=== PATIENT | male | born 1965 | race American Indian/Alaskan Native ===

== ENCOUNTER 2020-07-13 18:04 | Emergency (ER) | payer OTHER ==
--- NOTE | 2020-07-13 19:40 | Event Note ---
ED Screening Note Date of service: 07/13/20 Time: 19:38 ED Screening Note: 54-year-old male patient with history of chronic alcohol abuse presents emergency department with complaints of progressively worsening chronic cough, which occurred today, followed by syncopal episode during which he fell and hit his head. Patient mitts to drinking alcohol today. States he does not recall the events surrounding his syncope/head strike but his friend witnessed the event. He is not on antiepileptic medications. Tetanus is up-to-date. General: Awake, appropriately interactive, no acute distress. HEENT: Superficial abrasion noted to the back of the head. Neck: Supple. Full range of motion intact. Cardiovascular: Normal peripheral perfusion. Pulmonary: No respiratory distress. Patient is speaking normally without use of accessory muscles. Skin: No apparent rashes or lesions. Neurological: No facial asymmetry. Speech is clear. Follows commands. Patient is alert and oriented. Musculoskeletal: Moves all four extremities spontaneously with normal range of motion. Psych: Cooperative. Appropriate mood and affect. I have greeted and performed a focused rapid initial assessment of this patient. A comprehensive ED assessment and evaluation of the patient, analysis of all test results, and completion of the medical decision-making process will be conducted by additional ED providers. This initial assessment/diagnostic orders/clinical plan/treatment(s) is/are subject to change based on patients health status, clinical progression and re-assessment. Further treatment and workup at subsequent clinical provider's discretion. Patient/guardian urged not to elope from the ED as their condition may be serious if not clinically assessed and managed.
--- NOTE | 2020-07-13 20:14 | XRay Report ---
CHEST 2 VIEWS INDICATION / CLINICAL INFORMATION: syncope. COMPARISON: None available. FINDINGS: SUPPORT DEVICES: None. HEART / MEDIASTINUM: No significant abnormality. LUNGS / PLEURA: No significant pulmonary or pleural abnormality. No pneumothorax. ADDITIONAL FINDINGS: No significant additional findings. IMPRESSION: 1. No acute findings. Signer Name: Dwight Holguin MD Signed: 07/13/2020 8:09 PM Workstation Name: [id number]
[2020-07-13 20:15] LABS: Basophils # (Auto) 0.1 K/mm3 (0.0-0.1); Basophils % (Auto) 0.8 % (0.0-1.8); Eosinophils # (Auto) 0.1 K/mm3 (0.0-0.4); Eosinophils % (Auto) 1.6 % (0.0-4.3); Hematocrit 44.2 % (35.5-45.6); Hemoglobin 14.6 gm/dl (11.8-15.2); Lymphocytes # (Auto) 1.6 K/mm3 (1.2-5.4); Lymphocytes % (Auto) 25.3 % (13.4-35.0); Mean Corpuscular HGB Conc 33 % (32-34); Mean Corpuscular Volume 91 fl (84-94); Monocytes # (Auto) 0.6 K/mm3 (0.0-0.8); Monocytes % (Auto) 9.6 % (0.0-7.3); Platelet Count 201 K/mm3 (140-440); Red Blood Count 4.86 M/mm3 (3.65-5.03); Red Cell Distribution Width 14.5 % (13.2-15.2)
[2020-07-13 20:38] LABS: Alanine Aminotransferase 19 units/L (7-56); Albumin 4.1 g/dL (3.9-5); BUN/Creatinine Ratio 17; Blood Urea Nitrogen 15 mg/dL (9-20); Calcium 9.2 mg/dL (8.4-10.2); Hemolysis Index 11
--- NOTE | 2020-07-13 21:03 | Cat Scan Report ---
Exam: CT cervical spine History: headstrike; ETOH; Technique: Contiguous thin cut axial images obtained through the cervical spine. Sagittal and montaño l reconstructions performed by the technologist. All CT scans at this location are performed using CT dose reduction for ALARA by means of automated exposure control. Findings: No priors. There is no evidence of fracture or traumatic subluxation. Vertebral bodies are normal in height and alignment. Intervertebral disc spaces: Minimal spondylotic changes at C4-C5, C5-C6 and C6-C7 disc levels; neurof oramina are normal; tiny air bubble on the left side along the superior endplate of C4; probably from the disc space No significant degenerative change seen in the uncinate or facet joints. No significant canal stenosi s or osseous foraminal narrowing. Surrounding soft tissues are grossly normal. Impression: No signs of acute bony trauma to the cervical spine. Signer Name: Kavin Wilcox MD Signed: 07/13/2020 8:59 PM Workstation Name: [id number]
--- NOTE | 2020-07-13 21:05 | Cat Scan Report ---
NONENHANCED CT SCAN OF THE HEAD: INDICATION / CLINICAL INFORMATION: 54 years Male; headstrike; ETOH. TECHNIQUE: Routine CT head without contrast. All CT scans at this location are performed using CT dos e reduction for ALARA by means of automated exposure control. COMPARISON: None. FINDINGS: BRAIN / INTRACRANIAL CONTENTS: No intracranial sequela from the trauma; no scalp hematoma; no air-flu id level in the visualized portions of the paranasal sinuses No acute hemorrhage, mass effect, midline shift, hydrocephalus, or acute, large territorial infarct. No chronic infarct or focal atrophy. Normal brain volume and ventricular/sulcal size for age. No sign ificant white matter abnormality. Cerebellar vermis and the mammillary bodies normal CRANIOCERVICAL JUNCTION: No significant abnormality. ORBITS: No significant abnormality of visualized orbits. SINUSES / MASTOIDS: No significant abnormality of the visualized paranasal sinuses or mastoid air cathy ls. ADDITIONAL FINDINGS: None. IMPRESSION: No intracranial sequela from the trauma No acute focal parenchymal lesion in the brain Signer Name: Kavin Wilcox MD Signed: 07/13/2020 9:01 PM Workstation Name: [id number]
[2020-07-14] MEDS ORDERED: SODIUM CHLORIDE 0.9% 1000 ML 1,000 ML IV ONE (01:33)
--- NOTE | 2020-07-14 01:41 | Emergency Department Report ---
HPI - General Chief Complaint: Seizure Time Seen by Provider: 07/14/20 01:14 - HPI HPI: Room 22 The patient is a 54-year-old male present with a chief complaint of coughing spells and syncope. The patient states over the past 3 months he has had 3 sepa rate episodes where he has spasmodic coughing which causes him to shake and then lose consciousness falling to the floor. Patient states most recent episode occurred today. The patient states 1 of these episodes was witnessed by a friend and states that he does not shake when on the floor. The patient states he begins to cough spasmodically and is aware of himself trembling before he loses consciousness. Patient states his cough has been nonproductive. Patient denies history of fever. Patient complains of soreness to the back of his head from a fall and neck pain. Patient states he has not sought medical attention for these episodes as his primary physician is only offering Zoom interviews. Patient gives his pain a score of 7/10 ED Past Medical Hx - Past Medical History Previous Medical History?: No - Surgical History Past Surgical History?: Yes Additional Surgical History: LT testicle at 12 year old. Lt eye - Family History Family history: no significant - Social History Smoking Status: Current Every Day Smoker (1/2 pack/day) Substance Use Type: None (Denies illicit drug use), Alcohol (Occasional) - Medications Home Medications: Home Medications Medication Instructions Recorded Confirmed Last Taken Type Benzonatate [Tessalon Perles] 100 mg PO Q8HR #60 capsule 07/14/20 Unknown Rx HYDROcodone/APAP 5-325 [Helm 1 - 2 each PO Q6HR PRN #10 tablet 07/14/20 Unknown Rx 5/325] Ibuprofen [Motrin 800 MG tab] 800 mg PO Q8HR PRN #20 tablet 07/14/20 Unknown Rx Prednisone [predniSONE 10 mg 10 mg PO .TAPER #1 tab.ds.pk 07/14/20 Unknown Rx (6-Day Pack, 21 Tabs)] ED Review of Systems ROS: Stated complaint: COUGHING/DIZZY/WEAKNESS Other details as noted in HPI Constitutional: denies: fever Eyes: denies: eye pain ENT: denies: throat pain Respiratory: cough Cardiovascular: denies: chest pain Endocrine: no symptoms reported Gastrointestinal: denies: abdominal pain Genitourinary: denies: dysuria Musculoskeletal: arthralgia Neurological: headache Physical Exam - Physical Exam Vital Signs: Vital Signs 07/13/20 19:40 Temperature 98.9 F Pulse Rate 70 Respiratory 16 Rate Blood Pressure 117/59 [Right] O2 Sat by Pulse 96 Oximetry Physical Exam: GENERAL: The patient is well-developed well-nourished male lying on stretcher not appearing to be in acute distress. [] HEENT: Normocephalic. Approximately 4 cm diameter bruise to the occipital region. Extraocular motions are intact. Patient has moist mucous membranes. NECK: Supple. There is no axial step-off. There is no stridor CHEST/LUNGS: Clear to auscultation. There is no respiratory distress noted. HEART/CARDIOVASCULAR: Regular. There is no tachycardia. There is no gallop rub or murmur. ABDOMEN: Abdomen is soft, nontender. Patient has normal bowel sounds. There is no abdominal distention. SKIN: There is no rash. There is no edema. There is no diaphoresis. NEURO: The patient is awake, alert, and oriented. The patient is cooperative. The patient has no focal neurologic deficits. The patient has normal speech. Cranial nerves II through XII grossly intact MUSCULOSKELETAL: There is no evidence of acute injury. ED Course Vital Signs 07/13/20 19:40 Temperature 98.9 F Pulse Rate 70 Respiratory 16 Rate Blood Pressure 117/59 [Right] O2 Sat by Pulse 96 Oximetry ED Medical Decision Making - Lab Data Result diagrams: 07/13/20 19:55 07/13/20 19:55 Laboratory Tests 07/13/20 07/13/20 07/13/20 19:55 19:55 19:55 WBC 6.3 RBC 4.86 Hgb 14.6 Hct 44.2 MCV 91 MCH 30 MCHC 33 RDW 14.5 Plt Count 201 Lymph % (Auto) 25.3 [place] % (Auto) 9.6 H Eos % (Auto) 1.6 Baso % (Auto) 0.8 Lymph # (Auto) 1.6 [place] # (Auto) 0.6 Eos # (Auto) 0.1 Baso # (Auto) 0.1 Seg Neutrophils % 62.7 Seg Neutrophils # 4.0 Sodium 135 L Potassium 4.2 Chloride 100.9 Carbon Dioxide 24 Anion Gap 14 BUN 15 Creatinine 0.9 Estimated GFR > 60 BUN/Creatinine Ratio 17 Glucose 112 H Calcium 9.2 Magnesium 1.90 Total Bilirubin 0.50 AST 19 ALT 19 Alkaline Phosphatase 74 Troponin T < 0.010 Total Protein 7.7 Albumin 4.1 Albumin/Globulin Ratio 1.1 Plasma/Serum Alcohol < 0.01 - EKG Data -: EKG Interpreted by Me EKG shows normal: sinus rhythm Rate: bradycardia (57 bpm) - EKG Data When compared to previous EKG there are: previous EKG unavailable Interpretation: nonspecific ST-T wave harrison - Differential Diagnosis Posttussive syncope Critical care attestation.: If time is entered above; I have spent that time in minutes in the direct care of this critically ill patient, excluding procedure time. ED Disposition Clinical Impression: Post-tussive syncope Disposition: TO HOME OR SELFCARE Is pt being admited?: No Does the pt Need Aspirin: No Condition: Stable Instructions: Cough, Adult, [id number], Syncope (ED) Additional Instructions: Return to the emergency department should you develop worsening symptoms, inability to tolerate food or liquids, high fever or any other concerns Prescriptions: Ibuprofen [Motrin 800 MG tab] 800 mg PO Q8HR PRN #20 tablet PRN Reason: Pain, Moderate (4-6) HYDROcodone/APAP 5-325 [Helm 5/325] 1 - 2 each PO Q6HR PRN #10 tablet PRN Reason: Pain Prednisone [predniSONE 10 mg (6-Day Pack, 21 Tabs)] 10 mg PO .TAPER #1 tab.ds.pk Benzonatate [Tessalon Perles] 100 mg PO Q8HR #60 capsule Referrals: LISA SHULTZ MD [Staff Physician] - 3-5 Days (Dr. Shultz is a lmonologist. Please follow-up with her for further evaluation) Time of Disposition: 01:55
[2020-07-14 02:29] VITALS: BP 121/78
--- NOTE | 2020-07-14 11:32 | Electrocardiograph Report ---
[facility] Test Date: 2020-07-14 Test Time: 01:50:11 Pat Name: SHANE GILBERT Department: Room: Gender: M Regulatory Affairs Spec: : 1965 Requested By: ERIN DIALLO Order Number: [id number] Reading MD: Aiden Youngblood Measurements Intervals [place] Rate: 57 P: 44 SD: 212 QRS: 72 QRSD: 87 T: 58 QT: 395 QTc: 384 Interpretive Statements Sinus bradycardia Prolonged SD interval early replorization No previous ECG available for comparison Electronically Signed On 07-14-2020 11:32:18 EDT by Aiden Youngblood
== END 2020-07-14 02:29 | disposition home or self-care (01) ==
LOC: ED 18:04
DX: R05 Cough (principal); R55 Syncope and collapse; F17.200 Nicotine dependence, unspecified, uncomplicated; Z98.890 Other specified postprocedural states; Z79.1 Long term (current) use of non-steroidal anti-inflammatories (NSAID); Z79.899 Other long term (current) drug therapy
CPT/HCPCS: 36415; 70450; 71046; 72125; 80053; 83735; 84484; 85025; 93005; 99284; J7030; 80320; G0480

== ENCOUNTER 2020-07-29 07:24 | Emergency (ER) | payer OTHER ==
[2020-07-29 07:35] VITALS: BP 111/74
--- NOTE | 2020-07-29 08:13 | XRay Report ---
CHEST 2 VIEWS INDICATION / CLINICAL INFORMATION: c/o dizziness. COMPARISON: 07/13/20 FINDINGS: SUPPORT DEVICES: None. HEART / MEDIASTINUM: No significant abnormality. LUNGS / PLEURA: No significant pulmonary or pleural abnormality. No pneumothorax. ADDITIONAL FINDINGS: No significant additional findings. IMPRESSION: 1. No acute findings. No change. Signer Name: Enrique Duvall MD Signed: 07/29/2020 8:08 AM Workstation Name: [id number]
--- NOTE | 2020-07-29 08:31 | Emergency Department Report ---
ED General Adult HPI - General Chief complaint: Dizziness Stated complaint: WEAKNESS/DIZZINESS Time Seen by Provider: 07/29/20 08:30 Source: patient, EMS Mode of arrival: Wheelchair Limitations: No Limitations - History of Present Illness Initial comments: Patient is a 54-year-old male who presents emergency department for evaluation of room spinning sensation since waking up several hours ago today. Patient denies nausea vomiting or diarrhea, denies headache, denies difficulty walking, denies sensory changes or extremity weakness. Patient denies chest pain or shortness of breath, denies fever. Patient denies trauma, denies back pain. - Related Data Previous Rx's Medication Instructions Recorded Last Taken Type Benzonatate [Tessalon Perles] 100 mg PO Q8HR #60 capsule 07/14/20 Unknown Rx HYDROcodone/APAP 5-325 [[place] 1 - 2 each PO Q6HR PRN #10 tablet 07/14/20 Unknown Rx 5/325] Ibuprofen [Motrin 800 MG tab] 800 mg PO Q8HR PRN #20 tablet 07/14/20 Unknown Rx Prednisone [predniSONE 10 mg 10 mg PO .TAPER #1 tab.ds.pk 07/14/20 Unknown Rx (6-Day Pack, 21 Tabs)] Meclizine [Antivert] 25 mg PO TID PRN #15 tablet 07/29/20 Unknown Rx Multivit-Min/Iron Fum/Folic AC 1 each PO DAILY #30 tablet 07/29/20 Unknown Rx [Jpwlr-Gtsalxu-Inrabwhu Tablet] Allergies Allergy/AdvReac Type Severity Reaction Status Date / Time No Known Allergies Allergy Unverified 07/13/20 19:30 ED Review of Systems ROS: Stated complaint: WEAKNESS/DIZZINESS Other details as noted in HPI Comment: All other systems reviewed and negative ED Past Medical Hx - Past Medical History Previous Medical History?: No - Surgical History Past Surgical History?: Yes Additional Surgical History: LT testicle at 12 year old. Lt eye - Social History Smoking Status: Current Every Day Smoker Substance Use Type: Alcohol - Medications Home Medications: Home Medications Medication Instructions Recorded Confirmed Last Taken Type Benzonatate [Tessalon Perles] 100 mg PO Q8HR #60 capsule 07/14/20 Unknown Rx HYDROcodone/APAP 5-325 [[place] 1 - 2 each PO Q6HR PRN #10 tablet 07/14/20 Unknown Rx 5/325] Ibuprofen [Motrin 800 MG tab] 800 mg PO Q8HR PRN #20 tablet 07/14/20 Unknown Rx Prednisone [predniSONE 10 mg 10 mg PO .TAPER #1 tab.ds.pk 07/14/20 Unknown Rx (6-Day Pack, 21 Tabs)] Meclizine [Antivert] 25 mg PO TID PRN #15 tablet 07/29/20 Unknown Rx Multivit-Min/Iron Fum/Folic AC 1 each PO DAILY #30 tablet 07/29/20 Unknown Rx [Qygei-Ecrrjdf-Jgmomrbo Tablet] ED Physical Exam - General Limitations: No Limitations General appearance: alert, in no apparent distress - Head Head exam: Present: atraumatic, normocephalic - Eye Eye exam: Present: normal appearance - ENT ENT exam: Present: mucous membranes moist - Neck Neck exam: Present: normal inspection - Respiratory Respiratory exam: Present: normal lung sounds bilaterally. Absent: respiratory distress - Cardiovascular Cardiovascular Exam: Present: regular rate, normal rhythm - GI/Abdominal GI/Abdominal exam: Present: soft, normal bowel sounds - Rectal Rectal exam: Present: deferred - Extremities Exam Extremities exam: Present: normal inspection - Back Exam Back exam: Present: normal inspection - Neurological Exam Neurological exam: Present: alert, oriented X3 - Expanded Neurological Exam Expanded Speech: Present: fluid speech Cerebellar function: Finger to Nose: Normal, Heel to Chan: Normal Motor strength exam: RUE: 5, LUE: 5, RLE: 5, LLE: 5 Best Eye Response ([place]): (4) open spontaneously Best Motor Response ([place]): (6) obeys commands Best Verbal Response ([place]): (5) oriented Lissette Total: 15 - Psychiatric Psychiatric exam: Present: normal affect, normal mood - Skin Skin exam: Present: warm, dry, intact, normal color. Absent: rash ED Course Vital Signs 07/29/20 07:29 Temperature 97.6 F Pulse Rate 64 Respiratory 20 Rate Blood Pressure 111/74 O2 Sat by Pulse 99 Oximetry - Reevaluation(s) Reevaluation #1: 07/29/20 09:13 Patient initially treated with IV NS 1 L x 1 and meclizine 25 mg p.o. x1. Reevaluation #2: 07/29/20 11:46 Patient continuing to complain of severe vertigo, CTA head and neck, Valium 5 mg p.o. x1 ordered. Additional 1 L IV normal saline x1 ordered 07/29/20 14:50 Patient continues to complain of vertigo despite treatment with meclizine, Valium, 2 L IV normal saline, reassuring vital signs, reassuring CT and CTA head, reassuring work-up including EKG and troponin x2. Previous notes suggest patient may be chronic alcoholic, patient denies stating he has 1 drink on Friday and Friday each. Patient nonetheless given thiamine 100 mg IM x1. Reevaluation #3: 07/29/20 15:24 Patient ambulates through the emergency department without difficulty, neuro exam nonfocal, patient endplates with steady gait, states his dizziness has resolved. Patient advised to follow-up with PMD or neurology in 1 to 2 days for reevaluation. ED Medical Decision Making - Lab Data Result diagrams: 07/29/20 07:50 07/29/20 07:50 Labs 07/29/20 07/29/20 07/29/20 07:50 07:50 08:46 WBC 6.3 RBC 4.76 Hgb 14.3 Hct 43.3 MCV 91 MCH 30 MCHC 33 RDW 14.0 Plt Count 174 Lymph % (Auto) 42.0 H [place] % (Auto) 10.4 H Eos % (Auto) 3.2 Baso % (Auto) 1.1 Lymph # (Auto) 2.6 [place] # (Auto) 0.6 Eos # (Auto) 0.2 Baso # (Auto) 0.1 Seg Neutrophils % 43.3 Seg Neutrophils # 2.7 D-Dimer 142.90 Sodium 135 L Potassium 3.7 Chloride 101.3 Carbon Dioxide 23 Anion Gap 14 BUN 18 Creatinine 0.9 Estimated GFR > 60 BUN/Creatinine Ratio 20 Glucose 113 H Calcium 9.4 Magnesium Total Bilirubin 0.80 AST 13 ALT 18 Alkaline Phosphatase 81 Troponin T < 0.010 Total Protein 7.5 Albumin 4.2 Albumin/Globulin Ratio 1.3 07/29/20 07/29/20 11:00 11:00 WBC RBC Hgb Hct MCV MCH MCHC RDW Plt Count Lymph % (Auto) [place] % (Auto) Eos % (Auto) Baso % (Auto) Lymph # (Auto) [place] # (Auto) Eos # (Auto) Baso # (Auto) Seg Neutrophils % Seg Neutrophils # D-Dimer Sodium Potassium Chloride Carbon Dioxide Anion Gap BUN Creatinine Estimated GFR BUN/Creatinine Ratio Glucose Calcium Magnesium 1.90 Total Bilirubin AST ALT Alkaline Phosphatase Troponin T < 0.010 Total Protein Albumin Albumin/Globulin Ratio Vital Signs 07/29/20 07:29 Temperature 97.6 F Pulse Rate 64 Respiratory 20 Rate Blood Pressure 111/74 O2 Sat by Pulse 99 Oximetry - EKG Data -: EKG Interpreted by Me (Sinus rhythm at 60, no ST-T changes, normal QRS) - Radiology Data Radiology results: report reviewed CXR, CT Head, CTA Head/Neck negative per radiology Critical care attestation.: If time is entered above; I have spent that time in minutes in the direct care of this critically ill patient, excluding procedure time. ED Disposition Clinical Impression: Vertigo Disposition: DC-01 TO HOME OR SELFCARE Is pt being admited?: No Condition: Stable Instructions: Dizziness, [id number] Prescriptions: Meclizine [Antivert] 25 mg PO TID PRN #15 tablet PRN Reason: Vertigo Multivit-Min/Iron Fum/Folic AC [Jmurz-Roxjptv-Apobbdvi Tablet] 1 each PO DAILY #30 tablet Referrals: GONZALO LEMONS MD [Primary Care Provider] - 3-5 Days
[2020-07-29 08:46] LABS: Basophils # (Auto) 0.1 K/mm3 (0.0-0.1); Basophils % (Auto) 1.1 % (0.0-1.8); Eosinophils # (Auto) 0.2 K/mm3 (0.0-0.4); Eosinophils % (Auto) 3.2 % (0.0-4.3); Hematocrit 43.3 % (35.5-45.6); Hemoglobin 14.3 gm/dl (11.8-15.2); Lymphocytes # (Auto) 2.6 K/mm3 (1.2-5.4); Mean Corpuscular HGB Conc 33 % (32-34); Mean Corpuscular Volume 91 fl (84-94); Monocytes # (Auto) 0.6 K/mm3 (0.0-0.8); Monocytes % (Auto) 10.4 % (0.0-7.3); Platelet Count 174 K/mm3 (140-440); Red Blood Count 4.76 M/mm3 (3.65-5.03)
[2020-07-29 09:04] LABS: Alanine Aminotransferase 18 units/L (7-56); Albumin 4.2 g/dL (3.9-5); BUN/Creatinine Ratio 20; Blood Urea Nitrogen 18 mg/dL (9-20); Calcium 9.4 mg/dL (8.4-10.2); Hemolysis Index 2
[2020-07-29] MEDS ORDERED: MECLIZINE 25 MG TAB PO ONE (09:11)
[2020-07-29] MEDS ORDERED: SODIUM CHLORIDE 0.9% 1000 ML 1,000 ML IV ONE ×2 (09:11→13:18)
--- NOTE | 2020-07-29 09:51 | Cat Scan Report ---
CT HEAD WITHOUT CONTRAST INDICATION / CLINICAL INFORMATION: vertigo. TECHNIQUE: All CT scans at this location are performed using CT dose reduction for ALARA by means of automated exposure control. COMPARISON: CT dated 07/13/20 FINDINGS: HEMORRHAGE: None. EXTRA-AXIAL SPACES: Normal in size and morphology for the patient's age. VENTRICULAR SYSTEM: Normal in size and morphology for the patient's age. CEREBRAL PARENCHYMA: No significant abnormality. No acute territorial infarct. MIDLINE SHIFT / HERNIATION: None. CEREBELLUM / BRAINSTEM: No significant abnormality. ORBITS: Normal as visualized. SOFT TISSUES: No significant abnormality. SKULL: No significant abnormality. PARANASAL SINUSES / MASTOID AIR CELLS: Normal as visualized. ADDITIONAL FINDINGS: None. IMPRESSION: 1. No acute intracranial abnormality. No significant change. Signer Name: Enrique Duvall MD Signed: 07/29/2020 9:46 AM Workstation Name: [id number]
[2020-07-29] MEDS ORDERED: diazePAM 5 MG TAB PO ONE (11:45)
--- NOTE | 2020-07-29 12:49 | Cat Scan Report ---
CTA NECK WITH CONTRAST HISTORY: Vertigo COMPARISON: None. TECHNIQUE: Routine CTA of the neck was performed. 3-D/MIP reformats were postprocessed. Percentage s tenosis is determined by direct quantitative measurements of diseased internal carotid artery diamete r compared with normal distal internal carotid artery reference segments or by criteria similar to NA SCET where applicable.All CT scans at this location are performed using CT dose reduction for ALARA b y means of automated exposure control CONTRAST: 100 ml of Omnipaque 350 FINDINGS: Aortic arch: No significant abnormality. Cervical vertebral arteries: No significant abnormality. Common carotid arteries: No significant abnormality. Carotid bifurcations: Normal bilaterally Cervical internal carotid arteries: No significant abnormality. Additional findings: None. IMPRESSION: 1. Normal CTA of the neck Signer Name: Kavin Wilcox MD Signed: 07/29/2020 12:44 PM Workstation Name: [id number]
--- NOTE | 2020-07-29 12:52 | Cat Scan Report ---
CTA HEAD WITH CONTRAST HISTORY: Vertigo COMPARISON: None. TECHNIQUE: Routine non-contrast CT Head, CTA of the head and post-contrast CT Head are performed. 3-D /MIP reformats postprocessed. All CT scans at this location are performed using CT dose reduction for ALARA by means of automated exposure control CONTRAST: 100 ml of Omnipaque 350 FINDINGS: CTA Head: Intracranial vertebral arteries: No significant abnormality. Basilar artery: No significant abnormality. Posterior cerebral arteries: No significant abnormality. Intracranial internal carotid arteries: No significant abnormality. Vascular calcification in the lef t internal carotid artery cavernous segment Anterior cerebral arteries: No significant abnormality. Middle cerebral arteries: No significant abnormality. Dural venous sinuses:Not optimally opacified. No significant abnormality. Additional findings: None. IMPRESSION: 1. No significant abnormality. Signer Name: Kavin Wilcox MD Signed: 07/29/2020 12:48 PM Workstation Name: [id number]
[2020-07-29] MEDS ORDERED: THIAMINE 200 MG/2 ML VIAL IM ONE (14:35)
--- NOTE | 2020-07-31 10:36 | Electrocardiograph Report ---
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
--- NOTE | 2020-07-31 10:37 | Electrocardiograph Report ---
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
== END 2020-07-29 16:15 | disposition home or self-care (01) ==
LOC: ED 07:24
DX: R42 Dizziness and giddiness (principal); F17.200 Nicotine dependence, unspecified, uncomplicated; Z98.890 Other specified postprocedural states; Z79.1 Long term (current) use of non-steroidal anti-inflammatories (NSAID); Z79.899 Other long term (current) drug therapy
CPT/HCPCS: 36415; 70450; 70496; 70498; 71046; 80053; 83735; 84484; 85025; 85379; 93005; 96360; 96372; 99285; J3411; J7030; Q9967; 80320; G0480